=== PATIENT | male | born 1965 | race Caucasian/White ===

== ENCOUNTER 2018-06-02 09:25 | Inpatient (IN) | payer BC ==
[2018-06-02] MEDS ORDERED: Sodium Chloride 0.9% 10 ML Syringe FLUSH PRN (09:33)
[2018-06-02] MEDS ORDERED: fentaNYL 100 MCG/2 ML SDV IVPUSH ONE (09:33)
[2018-06-02] MEDS ORDERED: Iopamidol 612 MG/ML 100 ML Bottle IVPUSH ONE (09:49)
[2018-06-02 10:46] LABS: CHLORIDE,CL 100 mEq/L (98-106); SODIUM,NA 137 mEq/L (136-145)
--- NOTE | 2018-06-02 12:02 | EDM.PDOC ---
ED HPI GENERAL MEDICAL PROBLEM - General Chief Complaint: General Stated Complaint: fall Time Seen by Provider: 06/02/18 09:35 Source of Information: Reports: Patient, EMS History Limitations: Reports: No Limitations - History of Present Illness INITIAL COMMENTS - FREE TEXT/NARRATIVE: Patient presents to ER per [facility] with complaints of right rib pain. Was working on a 3 step ladder and it started to "chong" and he fell landing on the metal step. States he did bend the step. Was able to work 4 hours after the event occurred and when he went home for the night, laid down on his couch and has been unable to get up since that time. He complains of severe pain with movement but no real pain when at rest. He denies any shortness of breath, just pain with deep breaths. Has been voiding in "a peanut butter jar" and friends have been getting him water to drink. He denies back pain, pelvic pain or leg pain. Did not hit his head or lose consciousness with the fall. No neck pain today. PMH of Hypertension, Hyperlipidemia. 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, NSAIDS Right Lumbar Pain Score (Numeric/FACES): 8 - Related Data Allergies Allergy/AdvReac Type Severity Reaction Status Date / Time No Known Allergies Allergy Verified 06/02/18 09:44 Home Meds: Home Meds Aspirin 325 mg PO DAILY 10/31/15 [History] Calcium Carbonate [Calcium] 500 mg PO DAILY 10/31/15 [History] Cholecalciferol (Vitamin D3) [Vitamin D] 2,000 unit PO DAILY 10/31/15 [History] Hydrochlorothiazide 12.5 mg PO DAILY 10/31/15 [History] Multivitamin [Daily Multiple Vitamin] 1 tab PO DAILY 10/31/15 [History] Niacin 500 mg PO DAILY 10/31/15 [History] Valsartan 300 mg PO DAILY 10/31/15 [History] Vitamin B Complex [B Complex] 1 tab PO DAILY 10/31/15 [History] Zinc 50 mg PO DAILY 10/31/15 [History] amLODIPine Besylate [Amlodipine Besylate] 10 mg PO DAILY 10/31/15 [History] Cranberry 500 mg PO DAILY 06/02/18 [History] Rosuvastatin Calcium 40 mg PO DAILY 06/02/18 [History] Past Medical History Cardiovascular History: Reports: High Cholesterol, Hypertension Respiratory History: Reports: Sleep Apnea Musculoskeletal History: Reports: Back Pain, Chronic Endocrine/Metabolic History: Reports: Other (See Below) Other Endocrine/Metabolic History: PRE-DIABETIC - Past Surgical History GI Surgical History: Reports: Hernia, Abdominal Male Surgical History: Reports: Lithotripsy (ES[facility]) Musculoskeletal Surgical History: Reports: Other (See Below) Other Musculoskeletal Surgeries/Procedures:: BACK SURGERY Social & Family History - Family History Family Medical History: Noncontributory - Tobacco Use Smoking Status *Q: Never Smoker - Recreational Drug Use Recreational Drug Use: No ED ROS GENERAL - Review of Systems Review Of Systems: See Below Constitutional: Reports: Weakness. Denies: Fever, Chills, Malaise, Decreased Appetite HEENT: Denies: Ear Pain, Sinus Problem, Throat Pain, Vertigo Respiratory: Reports: Pleuritic Chest Pain. Denies: Shortness of Breath, Cough Cardiovascular: Denies: Chest Pain, Edema, Lightheadedness Endocrine: Denies: Fatigue GI/Abdominal: Denies: Abdominal Pain, Nausea, Vomiting : Reports: No Symptoms Musculoskeletal: Reports: Other (right chest wall pain) Neurological: Reports: No Symptoms Psychiatric: Reports: No Symptoms ED EXAM, GENERAL - Physical Exam Exam: See Below Exam Limited By: No Limitations General Appearance: Alert, WD/WN, Moderate Distress Ears: Normal External Exam, Normal TMs Nose: Normal Inspection, Normal Mucosa, No Blood Throat/Mouth: Normal Inspection, Normal Oropharynx Head: Normocephalic Neck: Normal Inspection, Supple, Non-Tender Respiratory/Chest: Lungs Clear, Other (right chest and axilla tender with palpation) Cardiovascular: Regular Rate, Rhythm GI/Abdominal: Normal Bowel Sounds, Soft, Non-Tender Extremities: Normal Inspection, Normal Range of Motion, Normal Capillary Refill Neurological: Alert, Oriented Skin Exam: Warm, Dry Course - Vital Signs Last Recorded V/S: Last Vital Signs Temp 97.8 F 06/02/18 09:33 Pulse 72 06/02/18 09:33 Resp 20 06/02/18 09:33 BP 137/87 06/02/18 09:33 Pulse Ox 97 06/02/18 09:33 - Orders/Labs/Meds Orders: Active Orders 24 hr Category Date Time Status Chest w Cont [CT] Stat Exams 06/02/18 09:48 Taken Sodium Chloride 0.9% [Saline Flush] Med 06/02/18 09:33 Active 10 ml FLUSH ASDIRECTED PRN Saline Lock Insert [OM.PC] Routine Oth 06/02/18 09:33 Ordered Medication Orders Sodium Chloride (Saline Flush) 10 ml FLUSH ASDIRECTED PRN PRN Reason: Keep Vein Open Labs: Laboratory Tests 06/02/18 06/02/18 06/02/18 Range/Units 09:17 09:34 09:34 WBC 9.2 (5.0-10.0) 10^3/uL RBC 5.48 (4.50-6.00) 10^6/uL Hgb 17.0 (14.0-18.0) g/dL Hct 50.0 (40.0-54.0) % MCV 91.2 (82.0-94.0) fL MCH 31.0 (27.0-32.0) pg MCHC 34.0 (33.0-38.0) g/dL RDW Coeff of Ronak 13.4 (11.0-15.0) % Plt Count 202 (150-400) 10^3/uL Neut % (Auto) 67.2 (35-85) % Lymph % (Auto) 22.9 (10-55) % Brown % (Auto) 8.2 (0-16) % Eos % (Auto) 1.4 (0-5) % Baso % (Auto) 0.3 (0-3) % Neut # (Auto) 6.19 (1.80-7.00) 10^3/uL Lymph # (Auto) 2.11 (1.00-4.80) 10^3/uL Brown # (Auto) 0.76 (0.00-0.80) 10^3/uL Eos # (Auto) 0.13 (0.00-0.45) 10^3/uL Baso # (Auto) 0.03 10^3/uL Sodium 137 (136-145) mEq/L Potassium 4.1 (3.5-5.0) mEq/L Chloride 100 (98-106) mEq/L Carbon Dioxide 29 (21-32) mmol/L BUN 15 (7-18) mg/dL Creatinine 1.2 (0.7-1.3) mg/dL Est Cr Clr Drug Dosing 68.08 mL/min Estimated GFR (MDRD) > 60 (>=60) mL/min Glucose 105 H (75-99) mg/dL Calcium 10.9 H (8.4-10.1) mg/dL Total Bilirubin 0.9 (0.0-1.0) mg/dL AST 31 (15-37) U/L ALT 46 (12-78) U/L Alkaline Phosphatase 82 (46-116) U/L Creatine Kinase 234 H (35-232) U/L C-Reactive Protein 1.5 H (0.2-0.8) mg/dL Total Protein 8.1 (6.4-8.2) g/dL Albumin 3.8 (3.4-5.0) g/dL Urine Color Yellow (YELLOW) Urine Appearance Clear (CLEAR) Urine pH 6.5 (4.5-8.0) Ur Specific Anderson 1.020 (1.003-1.020) Urine Protein Negative (NEGATIVE) mg/dL Urine Glucose (UA) Negative (NEGATIVE) mg/dL Urine Ketones 15 H (NEGATIVE) mg/dL Urine Occult Blood Negative (NEGATIVE) Urine Nitrite Negative (NEGATIVE) Urine Bilirubin Negative (NEGATIVE) Urine Urobilinogen 0.2 (0.2-1.0) EU/dL Ur Leukocyte Esterase Negative (NEGATIVE) Urine RBC Not seen (0-5) /HPF Urine WBC Not seen (0-5) /HPF Calcium Oxalate Crystal Few H (NOT SEEN) /HPF Amorphous Sediment Moderate H (NOT SEEN) /HPF Urine Mucus Moderate H (NOT SEEN) /HPF Meds: Medications Generic Name Dose Route Start Last Admin Trade Name Freq PRN Reason Stop Dose Admin Sodium Chloride 10 ml 06/02/18 09:33 Saline Flush FLUSH ASDIRECTED PRN Keep Vein Open Discontinued Medications Generic Name Dose Route Start Last Admin Trade Name Freq PRN Reason Stop Dose Admin Fentanyl 50 mcg 06/02/18 09:33 06/02/18 09:40 Sublimaze IVPUSH 06/02/18 09:34 50 mcg ONETIME ONE Administration Iopamidol 100 ml 06/02/18 09:49 Isovue-300 (61%) IVPUSH 06/02/18 09:50 ONETIME ONE - Re-Assessments/Exams Free Text/Narrative Re-Assessment/Exam: 06/02/18 12:06 CT scan of the chest was done. Does have rib fractures of 7, 8 and 9. Fractures 8-9 are displaced. Mild pleural effusion. No pneumothorax or blood noted. Labs essentially negative. 1150 Patient advised of findings of CT. Discussed home with pain medications versus admission with physical therapy and pain control. Has not been mobile at all for the last 2 days due to pain so patient agrees with plan for inpatient stay. Departure - Departure Time of Disposition: 12:09 Disposition: Admitted As Inpatient 64 Condition: Fair Clinical Impression: Multiple rib fractures - Discharge Information *PRESCRIPTION DRUG MONITORING PROGRAM REVIEWED*: No *COPY OF PRESCRIPTION DRUG MONITORING REPORT IN PATIENT LEONARD: No Referrals: PCP,Unknown [Primary Care Provider] - - Problem List & Annotations (1) Multiple rib fractures SNOMED Code(s): 8774454 Code(s): S22.49XA - MULTIPLE FRACTURES OF RIBS, UNSP SIDE, INIT FOR CLOS FX Status: Acute Priority: High Current Visit: Yes Qualifiers: Encounter type: initial encounter Laterality: right - Problem List Review Problem List Initiated/Reviewed/Updated: Yes - My Orders Last 24 Hours: My Active Orders 06/02/18 09:33 Sodium Chloride 0.9% [Saline Flush] 10 ml FLUSH ASDIRECTED PRN Saline Lock Insert [OM.PC] Routine 06/02/18 09:48 Chest w Cont [CT] Stat - Assessment/Plan Admission H&P: Please use this note as an admission H&P Last 24 Hours: My Active Orders 06/02/18 09:33 Sodium Chloride 0.9% [Saline Flush] 10 ml FLUSH ASDIRECTED PRN Saline Lock Insert [OM.PC] Routine 06/02/18 09:48 Chest w Cont [CT] Stat Assessment:: Mulitiple Right Rib Fractures Plan: Patient admitted inpatient for multiple rib fractures for pain control and physical therapy for ambulation.
[2018-06-02] MEDS ORDERED: Acetaminophen 325 MG Tab PO PRN (12:27)
[2018-06-02] MEDS ORDERED: fentaNYL 100 MCG/2 ML SDV IVPUSH PRN (12:27)
[2018-06-02] MEDS ORDERED: Ondansetron 4 MG Tab.DIS PO PRN (12:27)
[2018-06-02] MEDS: Enoxaparin 40 MG/0.4 ML Syringe SUBCUT SCH (12:49)
[2018-06-02] MEDS: fentaNYL 100 MCG/2 ML SDV IVPUSH SCH (19:45)
[2018-06-02] MEDS: Docusate Sodium 100 MG Cap PO SCH (19:49)
[2018-06-02] MEDS: Acetaminophen/oxyCODONE 325-5 MG Tab PO PRN (23:52)
[2018-06-03] MEDS: Aspirin 325 MG Tab PO SCH (07:53)
[2018-06-03] MEDS: amLODIPine 10 MG Tab PO SCH (07:53)
[2018-06-03] MEDS: Hydrochlorothiazide 12.5 MG Cap PO SCH (07:53)
[2018-06-03] MEDS: Docusate Sodium 100 MG Cap PO SCH ×2 (07:53→20:06)
[2018-06-03] MEDS: Multivitamin Tab PO SCH (07:54)
[2018-06-03] MEDS: Calcium Carbonate 500 MG Tab.Chew PO SCH (07:54)
[2018-06-03] MEDS: Vitamin B Complex Cap PO SCH (07:55)
[2018-06-03] MEDS: Cholecalciferol (Vitamin D3) 1,000 Unit Tab PO SCH (07:55)
[2018-06-03] MEDS: Zinc Sulfate 220 MG Cap PO SCH (07:55)
[2018-06-03] MEDS: Simvastatin 40 MG Tab PO SCH (07:55)
[2018-06-03] MEDS: fentaNYL 100 MCG/2 ML SDV IVPUSH SCH ×2 (07:56→20:06)
[2018-06-03] MEDS ORDERED: Non-Formulary Medication 1 Each (Cranberry [Cranberry] 500 MG) PO SCH (08:00)
[2018-06-03] MEDS ORDERED: NIACIN 500 MG PO SCH (08:00)
[2018-06-03] MEDS ORDERED: VALSARTAN 300 MG PO SCH (08:00)
[2018-06-03] MEDS: Cyclobenzaprine 10 MG Tab PO SCH ×3 (08:19→20:06)
[2018-06-03] MEDS: Meloxicam 7.5 MG Tab PO SCH (08:19)
[2018-06-03] MEDS: Enoxaparin 40 MG/0.4 ML Syringe SUBCUT SCH (11:29)
--- NOTE | 2018-06-03 13:13 | PCM.PN ---
- General Info Date of Service: 06/03/18 Admission Dx/Problem (Free Text): Right Rib Fractures of 7, 8 and 9 Functional Status: Reports: Pain Controlled, Tolerating Diet. Denies: Ambulating - Review of Systems General: Reports: Malaise. Denies: Fever, Weakness, Fatigue HEENT: Reports: No Symptoms Pulmonary: Reports: Pleuritic Chest Pain. Denies: Shortness of Breath, Cough Cardiovascular: Denies: Chest Pain, Edema, Lightheadedness Gastrointestinal: Denies: Abdominal Pain, Nausea, Vomiting Genitourinary: Reports: No Symptoms Musculoskeletal: Reports: Other (right rib pain) Skin: Reports: No Symptoms Neurological: Reports: No Symptoms - Patient Data Vitals - Most Recent: Last Vital Signs Temp 99.2 F 06/03/18 11:54 Pulse 81 06/03/18 11:54 Resp 20 06/03/18 11:54 BP 127/82 06/03/18 11:54 Pulse Ox 95 06/03/18 11:54 Weight - Most Recent: 335 lb 3.2 oz Lab Results Last 24 Hours: Laboratory Results - last 24 hr 06/02/18 Range/Units 20:26 POC Glucose 118 H (75-105) mg/dl Med Orders - Current: Current Medications Acetaminophen (Tylenol) 650 mg PO Q4H PRN PRN Reason: Pain (Mild 1-3)/fever Amlodipine Besylate (Norvasc) 10 mg PO DAILY [facility] Last Admin: 06/03/18 07:53 Dose: 10 mg Aspirin (Aspirin) 325 mg PO DAILY [facility] Last Admin: 06/03/18 07:53 Dose: 325 mg Calcium Carbonate/Glycine (Tums) 500 mg PO DAILY [facility] Last Admin: 06/03/18 07:54 Dose: 500 mg Cholecalciferol (Vitamin D3) 2,000 units PO DAILY [facility] Last Admin: 06/03/18 07:55 Dose: 2,000 units Cyclobenzaprine HCl (Flexeril) 10 mg PO TID [facility] Last Admin: 06/03/18 08:19 Dose: 10 mg Docusate Sodium (Colace) 100 mg PO BID [facility] Last Admin: 06/03/18 07:53 Dose: 100 mg Enoxaparin Sodium (Lovenox) 40 mg SUBCUT Q24H [facility] Last Admin: 06/03/18 11:29 Dose: 40 mg Fentanyl (Sublimaze) 50 mcg IVPUSH BID [facility] Last Admin: 06/03/18 07:56 Dose: 50 mcg Fentanyl (Sublimaze) 25 mcg IVPUSH Q6H PRN PRN Reason: Pain Last Admin: 06/02/18 17:00 Dose: 25 mcg Hydrochlorothiazide (Hydrochlorothiazide) 12.5 mg PO DAILY [facility] Last Admin: 06/03/18 07:53 Dose: 12.5 mg Meloxicam (Mobic) 15 mg PO DAILY [facility] Last Admin: 06/03/18 08:19 Dose: 15 mg Multivitamins/Minerals/Vitamin C (Tab-A-Bushra) 1 tab PO DAILY [facility] Last Admin: 06/03/18 07:54 Dose: 1 tab Valsartan 300 Mg (Own Med) 300 mg PO DAILY [facility] Ondansetron HCl (Zofran Odt) 4 mg PO Q4H PRN PRN Reason: nausea, able to take PO Oxycodone/Acetaminophen (Percocet 325-5 Mg) 2 tab PO Q6H PRN PRN Reason: Pain (moderate 4-6) Last Admin: 06/02/18 23:52 Dose: 2 tab Simvastatin (Zocor) 80 mg PO DAILY [facility] Last Admin: 06/03/18 07:55 Dose: 80 mg Sodium Chloride (Saline Flush) 10 ml FLUSH ASDIRECTED PRN PRN Reason: Keep Vein Open Vitamin B Complex (Vitamin B Complex) 1 each PO DAILY [facility] Last Admin: 06/03/18 07:55 Dose: 1 each Zinc Sulfate (Zincate) 220 mg PO DAILY [facility] Last Admin: 06/03/18 07:55 Dose: 220 mg Discontinued Medications Fentanyl (Sublimaze) 50 mcg IVPUSH ONETIME ONE Stop: 06/02/18 09:34 Last Admin: 06/02/18 09:40 Dose: 50 mcg Iopamidol (Isovue-300 (61%)) 100 ml IVPUSH ONETIME ONE Stop: 06/02/18 09:50 Last Admin: 06/02/18 19:08 Dose: Not Given Non-Formulary Medication (Cranberry [Cranberry]) 500 mg PO DAILY [facility] Non-Formulary Medication (Niacin [Niacin]) 500 mg PO DAILY [facility] - Exam General: Alert, Oriented HEENT: Mucous Membr. Moist/Singer Neck: Supple Lungs: Clear to Auscultation, Normal Respiratory Effort, Other Cardiovascular: Regular Rate, Regular Rhythm GI/Abdominal Exam: Normal Bowel Sounds, Soft, Non-Tender Extremities: Normal Inspection, Other (tender to right axilla) Skin: Warm, Dry Neurological: No New Focal Deficit - Problem List & Annotations (1) Multiple rib fractures SNOMED Code(s): 2873834 Code(s): S22.49XA - MULTIPLE FRACTURES OF RIBS, UNSP SIDE, INIT FOR CLOS FX Status: Acute Priority: High Current Visit: Yes Qualifiers: Encounter type: initial encounter Laterality: right - Problem List Review Problem List Initiated/Reviewed/Updated: Yes - My Orders Last 24 Hours: My Active Orders 06/02/18 12:15 Resuscitation Status Routine 06/02/18 12:27 Patient Status [ADT] Routine Oxygen Therapy [RC] .PRN Up With Assistance [RC] .PRN Vital Signs [RC] 0000,0400,0800,1200,1600,2000 PT Evaluation and Treatment [CONS] Routine Acetaminophen [Tylenol] 650 mg PO Q4H PRN Acetaminophen/oxyCODONE [Percocet 325-5 MG] 2 tab PO Q6H PRN Ondansetron [Zofran ODT] 4 mg PO Q4H PRN fentaNYL [Sublimaze] 25 mcg IVPUSH Q6H PRN 06/02/18 19:39 Incentive Spirometry [RT Incentive Spirometry] [RC] 0900,1300,1600,2000 06/02/18 20:00 fentaNYL [Sublimaze] 50 mcg IVPUSH BID 06/03/18 08:00 Aspirin 325 mg PO DAILY Calcium Carbonate [Tums] 500 mg PO DAILY Cholecalciferol (Vitamin D3) [Vitamin D3] 2,000 units PO DAILY Cyclobenzaprine [Flexeril] 10 mg PO TID Meloxicam [Mobic] 15 mg PO DAILY Multivitamins [Tab-A-Bushra] 1 tab PO DAILY Simvastatin [Zocor] 80 mg PO DAILY Valsartan [Valsartan] 300 mg PO DAILY Vitamin B Complex 1 each PO DAILY Zinc Sulfate [Zincate] 220 mg PO DAILY amLODIPine [Norvasc] 10 mg PO DAILY hydroCHLOROthiazide 12.5 mg PO DAILY - Assessment Assessment:: Patient is still having ongoing pain with any movement but does admit it is better with the pain medications. Has been resistant with getting out of bed or toileting. Is using the incentive spirometer when encouraged by nursing. Denies shortness of breath. Is getting scheduled Fentanyl and taking Percocet for break through pain. Continue pain meds and physical therapy. Encouraged to be up and mobile as much as possible to prevent any further concerns, ie. pneumonia, atelectasis, etc. Continue IS.
[2018-06-03] MEDS: IRBESARTAN 300 MG PO SCH (16:57)
[2018-06-03] MEDS: Acetaminophen/oxyCODONE 325-5 MG Tab PO PRN (23:56)
[2018-06-04] MEDS: fentaNYL 100 MCG/2 ML SDV IVPUSH SCH ×2 (08:34→19:29)
[2018-06-04] MEDS: Vitamin B Complex Cap PO SCH (08:35)
[2018-06-04] MEDS: Calcium Carbonate 500 MG Tab.Chew PO SCH (08:35)
[2018-06-04] MEDS: Simvastatin 40 MG Tab PO SCH (08:36)
[2018-06-04] MEDS: Meloxicam 7.5 MG Tab PO SCH (08:36)
[2018-06-04] MEDS: Zinc Sulfate 220 MG Cap PO SCH (08:36)
[2018-06-04] MEDS: amLODIPine 10 MG Tab PO SCH (08:36)
[2018-06-04] MEDS: Multivitamin Tab PO SCH (08:36)
[2018-06-04] MEDS: Cyclobenzaprine 10 MG Tab PO SCH ×3 (08:38→19:28)
[2018-06-04] MEDS: Cholecalciferol (Vitamin D3) 1,000 Unit Tab PO SCH (08:39)
[2018-06-04] MEDS: Docusate Sodium 100 MG Cap PO SCH ×2 (08:39→19:28)
[2018-06-04] MEDS: Aspirin 325 MG Tab PO SCH (08:39)
[2018-06-04] MEDS: Hydrochlorothiazide 12.5 MG Cap PO SCH (08:39)
[2018-06-04] MEDS: IRBESARTAN 300 MG PO SCH (08:40)
[2018-06-04] MEDS: Enoxaparin 40 MG/0.4 ML Syringe SUBCUT SCH (11:42)
--- NOTE | 2018-06-04 13:56 | PCM.PN ---
- General Info Date of Service: 06/04/18 Functional Status: Reports: Other (pain partially controlled) - Review of Systems General: Reports: No Symptoms Cardiovascular: Denies: Chest Pain Gastrointestinal: Denies: Abdominal Pain, Diarrhea, Nausea, Vomiting Genitourinary: Denies: Dysuria Musculoskeletal: Reports: Other (RIGHT back pain s/p fx of ribs 7, 8, 9. no other MSK complaints) Neurological: Reports: No Symptoms - Patient Data Vitals - Most Recent: Last Vital Signs Temp 37.0 C 06/04/18 12:00 Pulse 79 06/04/18 12:00 Resp 16 06/04/18 12:00 BP 154/85 H 06/04/18 12:00 Pulse Ox 96 06/04/18 12:00 Weight - Most Recent: 152.044 kg Med Orders - Current: Current Medications Acetaminophen (Tylenol) 650 mg PO Q4H PRN PRN Reason: Pain (Mild 1-3)/fever Amlodipine Besylate (Norvasc) 10 mg PO DAILY [facility] Last Admin: 06/04/18 08:36 Dose: 10 mg Aspirin (Aspirin) 325 mg PO DAILY [facility] Last Admin: 06/04/18 08:39 Dose: 325 mg Calcium Carbonate/Glycine (Tums) 500 mg PO DAILY [facility] Last Admin: 06/04/18 08:35 Dose: 500 mg Cholecalciferol (Vitamin D3) 2,000 units PO DAILY [facility] Last Admin: 06/04/18 08:39 Dose: 2,000 units Cyclobenzaprine HCl (Flexeril) 10 mg PO TID [facility] Last Admin: 06/04/18 13:51 Dose: 10 mg Docusate Sodium (Colace) 100 mg PO BID [facility] Last Admin: 06/04/18 08:39 Dose: 100 mg Enoxaparin Sodium (Lovenox) 40 mg SUBCUT Q24H [facility] Last Admin: 06/04/18 11:42 Dose: 40 mg Fentanyl (Sublimaze) 50 mcg IVPUSH BID [facility] Last Admin: 06/04/18 08:34 Dose: 50 mcg Fentanyl (Sublimaze) 25 mcg IVPUSH Q6H PRN PRN Reason: Pain Last Admin: 06/02/18 17:00 Dose: 25 mcg Hydrochlorothiazide (Hydrochlorothiazide) 12.5 mg PO DAILY [facility] Last Admin: 10/06/18 08:39 Dose: 12.5 mg Meloxicam (Mobic) 15 mg PO DAILY [facility] Last Admin: 06/04/18 08:36 Dose: 15 mg Multivitamins/Minerals/Vitamin C (Tab-A-Bushra) 1 tab PO DAILY [facility] Last Admin: 06/04/18 08:36 Dose: 1 tab Irbesartan 300 Mg (Tabs Own Med) 0 each PO DAILY [facility] Last Admin: 06/04/18 08:40 Dose: 1 each Ondansetron HCl (Zofran Odt) 4 mg PO Q4H PRN PRN Reason: nausea, able to take PO Oxycodone/Acetaminophen (Percocet 325-5 Mg) 2 tab PO Q6H PRN PRN Reason: Pain (moderate 4-6) Last Admin: 06/03/18 23:56 Dose: 2 tab Simvastatin (Zocor) 80 mg PO DAILY [facility] Last Admin: 06/04/18 08:36 Dose: 80 mg Sodium Chloride (Saline Flush) 10 ml FLUSH ASDIRECTED PRN PRN Reason: Keep Vein Open Vitamin B Complex (Vitamin B Complex) 1 each PO DAILY [facility] Last Admin: 06/04/18 08:35 Dose: 1 each Zinc Sulfate (Zincate) 220 mg PO DAILY [facility] Last Admin: 06/04/18 08:36 Dose: 220 mg Discontinued Medications Fentanyl (Sublimaze) 50 mcg IVPUSH ONETIME ONE Stop: 06/02/18 09:34 Last Admin: 06/02/18 09:40 Dose: 50 mcg Iopamidol (Isovue-300 (61%)) 100 ml IVPUSH ONETIME ONE Stop: 06/02/18 09:50 Last Admin: 06/02/18 19:08 Dose: Not Given Non-Formulary Medication (Cranberry [Cranberry]) 500 mg PO DAILY [facility] Non-Formulary Medication (Niacin [Niacin]) 500 mg PO DAILY [facility] - Exam General: Alert, Oriented Lungs: Clear to Auscultation, Normal Respiratory Effort Cardiovascular: Regular Rate, Regular Rhythm GI/Abdominal Exam: Soft Back Exam: Other (TTP RIGHT upper and lateral back / chest wall. no crepitus or deformity. back exam otherwise without acute findings.) Peripheral Pulses: 2+: Radial (L), Radial (R) Skin: Warm, Dry, Intact Neurological: No New Focal Deficit Psy/Mental Status: Alert, Normal Affect, Normal Mood - Problem List Review Problem List Initiated/Reviewed/Updated: Yes - Assessment Assessment:: Patient is still having ongoing pain with any movement but does admit it is better with the pain medications. Has been resistant with getting out of bed or toileting. Is using the incentive spirometer when encouraged by nursing. Denies shortness of breath. Is getting scheduled Fentanyl and taking Percocet for break through pain. Continue pain meds and physical therapy. Encouraged to be up and mobile as much as possible to prevent any further concerns, ie. pneumonia, atelectasis, etc. Continue IS. 06/04/18 Reports continued pain but improved from yesterday. Using IS. Encourage ambulation. Plan is for DC home tomorrow. Repeat exam in AM.
[2018-06-04] MEDS: Acetaminophen/oxyCODONE 325-5 MG Tab PO PRN (23:44)
[2018-06-05] MEDS: Hydrochlorothiazide 12.5 MG Cap PO SCH (07:40)
[2018-06-05] MEDS: Cholecalciferol (Vitamin D3) 1,000 Unit Tab PO SCH (07:41)
[2018-06-05] MEDS: Simvastatin 40 MG Tab PO SCH (07:41)
[2018-06-05] MEDS: Docusate Sodium 100 MG Cap PO SCH (07:41)
[2018-06-05] MEDS: Meloxicam 7.5 MG Tab PO SCH (07:41)
[2018-06-05] MEDS: Aspirin 325 MG Tab PO SCH (07:41)
[2018-06-05] MEDS: Zinc Sulfate 220 MG Cap PO SCH (07:41)
[2018-06-05] MEDS: Vitamin B Complex Cap PO SCH (07:41)
[2018-06-05] MEDS: Calcium Carbonate 500 MG Tab.Chew PO SCH (07:41)
[2018-06-05] MEDS: Multivitamin Tab PO SCH (07:42)
[2018-06-05] MEDS: fentaNYL 100 MCG/2 ML SDV IVPUSH SCH (07:42)
[2018-06-05] MEDS: Cyclobenzaprine 10 MG Tab PO SCH (07:42)
[2018-06-05] MEDS: amLODIPine 10 MG Tab PO SCH (07:42)
[2018-06-05] MEDS: IRBESARTAN 300 MG PO SCH (07:52)
[2018-06-05 08:12] VITALS: BP 144/91
--- NOTE | 2018-06-05 08:53 | PCM.PN ---
- General Info Date of Service: 06/05/18 Functional Status: Reports: Pain Controlled - Review of Systems General: Reports: No Symptoms HEENT: Reports: No Symptoms Pulmonary: Reports: No Symptoms Cardiovascular: Reports: Other (chest wall pain) Gastrointestinal: Reports: No Symptoms Musculoskeletal: Reports: Other (RIGHT chest wall rib pain. denies other MSK concerns.) Skin: Reports: No Symptoms Neurological: Reports: No Symptoms - Patient Data Vitals - Most Recent: Last Vital Signs Temp 36.8 C 06/05/18 08:00 Pulse 75 06/05/18 08:00 Resp 16 06/05/18 08:00 BP 144/91 H 06/05/18 08:00 Pulse Ox 94 L 06/05/18 08:00 Weight - Most Recent: 152.044 kg Med Orders - Current: Current Medications Acetaminophen (Tylenol) 650 mg PO Q4H PRN PRN Reason: Pain (Mild 1-3)/fever Amlodipine Besylate (Norvasc) 10 mg PO DAILY [facility] Last Admin: 06/05/18 07:42 Dose: 10 mg Aspirin (Aspirin) 325 mg PO DAILY [facility] Last Admin: 06/05/18 07:41 Dose: 325 mg Calcium Carbonate/Glycine (Tums) 500 mg PO DAILY [facility] Last Admin: 06/05/18 07:41 Dose: 500 mg Cholecalciferol (Vitamin D3) 2,000 units PO DAILY [facility] Last Admin: 06/05/18 07:41 Dose: 2,000 units Cyclobenzaprine HCl (Flexeril) 10 mg PO TID [facility] Last Admin: 06/05/18 07:42 Dose: 10 mg Docusate Sodium (Colace) 100 mg PO BID [facility] Last Admin: 06/05/18 07:41 Dose: 100 mg Enoxaparin Sodium (Lovenox) 40 mg SUBCUT Q24H [facility] Last Admin: 06/04/18 11:42 Dose: 40 mg Fentanyl (Sublimaze) 50 mcg IVPUSH BID [facility] Last Admin: 06/05/18 07:42 Dose: 50 mcg Fentanyl (Sublimaze) 25 mcg IVPUSH Q6H PRN PRN Reason: Pain Last Admin: 06/02/18 17:00 Dose: 25 mcg Hydrochlorothiazide (Hydrochlorothiazide) 12.5 mg PO DAILY [facility] Last Admin: 06/05/18 07:40 Dose: 12.5 mg Meloxicam (Mobic) 15 mg PO DAILY [facility] Last Admin: 06/05/18 07:41 Dose: 15 mg Multivitamins/Minerals/Vitamin C (Tab-A-Bushra) 1 tab PO DAILY [facility] Last Admin: 06/05/18 07:42 Dose: 1 tab Irbesartan 300 Mg (Tabs Own Med) 0 each PO DAILY [facility] Last Admin: 06/05/18 07:52 Dose: 1 each Ondansetron HCl (Zofran Odt) 4 mg PO Q4H PRN PRN Reason: nausea, able to take PO Oxycodone/Acetaminophen (Percocet 325-5 Mg) 2 tab PO Q6H PRN PRN Reason: Pain (moderate 4-6) Last Admin: 06/04/18 23:44 Dose: 2 tab Simvastatin (Zocor) 80 mg PO DAILY [facility] Last Admin: 06/05/18 07:41 Dose: 80 mg Sodium Chloride (Saline Flush) 10 ml FLUSH ASDIRECTED PRN PRN Reason: Keep Vein Open Vitamin B Complex (Vitamin B Complex) 1 each PO DAILY [facility] Last Admin: 06/05/18 07:41 Dose: 1 each Zinc Sulfate (Zincate) 220 mg PO DAILY [facility] Last Admin: 06/05/18 07:41 Dose: 220 mg Discontinued Medications Fentanyl (Sublimaze) 50 mcg IVPUSH ONETIME ONE Stop: 06/02/18 09:34 Last Admin: 06/02/18 09:40 Dose: 50 mcg Iopamidol (Isovue-300 (61%)) 100 ml IVPUSH ONETIME ONE Stop: 06/02/18 09:50 Last Admin: 06/02/18 19:08 Dose: Not Given Non-Formulary Medication (Cranberry [Cranberry]) 500 mg PO DAILY [facility] Non-Formulary Medication (Niacin [Niacin]) 500 mg PO DAILY [facility] - Exam General: Alert, Oriented Lungs: Normal Respiratory Effort Cardiovascular: Regular Rate, Regular Rhythm Back Exam: Normal Inspection, Other (TTP RIGHT upper back. ) Extremities: Normal Inspection, Normal Range of Motion, Normal Capillary Refill Peripheral Pulses: 2+: Radial (L), Radial (R) Skin: Warm, Dry, Intact Neurological: No New Focal Deficit Psy/Mental Status: Alert, Normal Affect, Normal Mood - Problem List Review Problem List Initiated/Reviewed/Updated: Yes - My Orders Last 24 Hours: My Active Orders 06/05/18 08:24 Ready for Discharge [RC] PER UNIT ROUTINE - Assessment Assessment:: Patient is still having ongoing pain with any movement but does admit it is better with the pain medications. Has been resistant with getting out of bed or toileting. Is using the incentive spirometer when encouraged by nursing. Denies shortness of breath. Is getting scheduled Fentanyl and taking Percocet for break through pain. Continue pain meds and physical therapy. Encouraged to be up and mobile as much as possible to prevent any further concerns, ie. pneumonia, atelectasis, etc. Continue IS. 06/04/18 Reports continued pain but improved from yesterday. Using IS. Encourage ambulation. Plan is for DC home tomorrow. Repeat exam in AM. 06/05/18 reports significant improvement in pain control. reports he is able to go home today. Rx for PO norco and PO metaxalone. advised patient to rest, hydrate, take all Rx as directed, avoid heavy manual labor, fu with pcp in 3-5 days, go to ER if change or worse. patient reports understanding and agreement with plan. dc home stable.
[2018-06-05] MEDS ORDERED: Take Home: Acetaminophen/HYDROcodone 325-5 MG, 2 Tab Pack PO ONE (09:13)
--- NOTE | 2018-06-06 08:06 | PCM.DCSUM1 ---
Discharge Summary - Hospital Course Free Text/Narrative:: Patient pain controlled. No new problems during stay. Rx for PO norco and metaxalone for outpatient pain control. Advised patient to rest, hydrated, take all Rx as directed, avoid heavy labor, fu with PCP in 3-5 days, go to ER if change or worse. Patient reports understanding and agreement. DC home stable. Diagnosis: Stroke: No - Discharge Data Discharge Date: 06/05/18 Discharge Disposition: Home, Self-Care 01 Condition: Fair - Patient Summary/Data Consults: Consultations 06/02/18 12:27 PT Evaluation and Treatment [CONS] Routine - Patient Instructions Diet: Usual Diet as Tolerated Activity: No Strenuous Activities, Rest and Relax Today Driving: May Drive Today Showering/Bathing: December Shower - Discharge Plan *PRESCRIPTION DRUG MONITORING PROGRAM REVIEWED*: No *COPY OF PRESCRIPTION DRUG MONITORING REPORT IN PATIENT LEONARD: No Home Medications: Home Meds Aspirin 325 mg PO DAILY 10/31/15 [History] Calcium Carbonate [Calcium] 500 mg PO DAILY 10/31/15 [History] Cholecalciferol (Vitamin D3) [Vitamin D] 2,000 unit PO DAILY 10/31/15 [History] Hydrochlorothiazide 12.5 mg PO DAILY 10/31/15 [History] Multivitamin [Daily Multiple Vitamin] 1 tab PO DAILY 10/31/15 [History] Niacin 500 mg PO DAILY 10/31/15 [History] Vitamin B Complex [B Complex] 1 tab PO DAILY 10/31/15 [History] Zinc 50 mg PO DAILY 10/31/15 [History] amLODIPine Besylate [Amlodipine Besylate] 10 mg PO DAILY 10/31/15 [History] Cranberry 500 mg PO DAILY 06/02/18 [History] Rosuvastatin Calcium 40 mg PO DAILY 06/02/18 [History] Irbesartan 300 mg PO DAILY 06/03/18 [History] Patient Handouts: Rib Fracture Forms: ED Department Discharge Referrals: PCP,Unknown [Primary Care Provider] - - Discharge Summary/Plan Comment DC Time >30 min.: No - General Info Date of Service: 06/05/18 Functional Status: Reports: Pain Controlled - Review of Systems General: Reports: No Symptoms Pulmonary: Reports: No Symptoms Cardiovascular: Reports: No Symptoms Musculoskeletal: Reports: Other (still with some pain to chest wall, improved from previous encounter) Neurological: Reports: No Symptoms - Patient Data Vitals - Most Recent: Last Vital Signs Temp 36.8 C 06/05/18 08:00 Pulse 75 06/05/18 08:00 Resp 16 06/05/18 08:00 BP 144/91 H 06/05/18 08:00 Pulse Ox 94 L 06/05/18 08:00 Weight - Most Recent: 152.044 kg Med Orders - Current: Current Medications Discontinued Medications Acetaminophen (Tylenol) 650 mg PO Q4H PRN PRN Reason: Pain (Mild 1-3)/fever Hydrocodone Bitart/Acetaminophen (Take Home: Acetaminophen/Hydrocod, 2 Tab Pack ) 3 packet PO ONETIME ONE Stop: 06/05/18 09:14 Last Admin: 06/05/18 10:00 Dose: 3 packet Amlodipine Besylate (Norvasc) 10 mg PO DAILY [facility] Last Admin: 06/05/18 07:42 Dose: 10 mg Aspirin (Aspirin) 325 mg PO DAILY [facility] Last Admin: 06/05/18 07:41 Dose: 325 mg Calcium Carbonate/Glycine (Tums) 500 mg PO DAILY [facility] Last Admin: 06/05/18 07:41 Dose: 500 mg Cholecalciferol (Vitamin D3) 2,000 units PO DAILY [facility] Last Admin: 06/05/18 07:41 Dose: 2,000 units Cyclobenzaprine HCl (Flexeril) 10 mg PO TID [facility] Last Admin: 06/05/18 07:42 Dose: 10 mg Docusate Sodium (Colace) 100 mg PO BID [facility] Last Admin: 06/05/18 07:41 Dose: 100 mg Enoxaparin Sodium (Lovenox) 40 mg SUBCUT Q24H [facility] Last Admin: 06/04/18 11:42 Dose: 40 mg Fentanyl (Sublimaze) 50 mcg IVPUSH ONETIME ONE Stop: 06/02/18 09:34 Last Admin: 06/02/18 09:40 Dose: 50 mcg Fentanyl (Sublimaze) 50 mcg IVPUSH BID [facility] Last Admin: 06/05/18 07:42 Dose: 50 mcg Fentanyl (Sublimaze) 25 mcg IVPUSH Q6H PRN PRN Reason: Pain Last Admin: 06/02/18 17:00 Dose: 25 mcg Hydrochlorothiazide (Hydrochlorothiazide) 12.5 mg PO DAILY [facility] Last Admin: 06/05/18 07:40 Dose: 12.5 mg Iopamidol (Isovue-300 (61%)) 100 ml IVPUSH ONETIME ONE Stop: 06/02/18 09:50 Last Admin: 06/02/18 19:08 Dose: Not Given Meloxicam (Mobic) 15 mg PO DAILY [facility] Last Admin: 06/05/18 07:41 Dose: 15 mg Multivitamins/Minerals/Vitamin C (Tab-A-Bushra) 1 tab PO DAILY [facility] Last Admin: 06/05/18 07:42 Dose: 1 tab Non-Formulary Medication (Cranberry [Cranberry]) 500 mg PO DAILY [facility] Non-Formulary Medication (Niacin [Niacin]) 500 mg PO DAILY [facility] Irbesartan 300 Mg (Tabs Own Med) 0 each PO DAILY [facility] Last Admin: 06/05/18 07:52 Dose: 1 each Ondansetron HCl (Zofran Odt) 4 mg PO Q4H PRN PRN Reason: nausea, able to take PO Oxycodone/Acetaminophen (Percocet 325-5 Mg) 2 tab PO Q6H PRN PRN Reason: Pain (moderate 4-6) Last Admin: 06/04/18 23:44 Dose: 2 tab Simvastatin (Zocor) 80 mg PO DAILY [facility] Last Admin: 06/05/18 07:41 Dose: 80 mg Sodium Chloride (Saline Flush) 10 ml FLUSH ASDIRECTED PRN PRN Reason: Keep Vein Open Vitamin B Complex (Vitamin B Complex) 1 each PO DAILY [facility] Last Admin: 06/05/18 07:41 Dose: 1 each Zinc Sulfate (Zincate) 220 mg PO DAILY [facility] Last Admin: 06/05/18 07:41 Dose: 220 mg - Exam General: Reports: Alert, Oriented Lungs: Reports: Normal Respiratory Effort Cardiovascular: Reports: Regular Rate, Regular Rhythm Back Exam: Reports: Other (RIGHT upper back TTP. Back exam otherwise without acute findings.)
== END 2018-06-05 10:17 | disposition home or self-care (01) | DRG 135 ==
LOC: CC.ED 09:25 → CC.MS 12:14
PROVIDERS: ADMIT Physician Assistant Medical; ATTEND Family Medicine
DX: S22.41XA Multiple fractures of ribs, right side, initial encounter for closed fracture (principal); W11.XXXA Fall on and from ladder, initial encounter; I10 Essential (primary) hypertension; E78.5 Hyperlipidemia, unspecified; E78.00 Pure hypercholesterolemia, unspecified; G47.30 Sleep apnea, unspecified; G89.29 Other chronic pain; M54.9 Dorsalgia, unspecified; R73.03 Prediabetes; Z79.82 Long term (current) use of aspirin; Z79.899 Other long term (current) drug therapy
CPT/HCPCS: 36415; 71260; 80053; 81001; 82550; 82962; 85025; 86140; 96374; 97116-GP; 97161-GP; 99284; A9270-GY; J1650; J3010; Q9967

== ENCOUNTER → 2022-08-28 | Day surgery (SDC) | payer BC ==
[~2022-08-28] MED LIST: Flumazenil 0.1 MG/ML 10 ML MDV ONE; Ketamine 200 MG/20 ML MDV ONE; Lactated Ringers 1,000 ML IV SCH; Midazolam 1 MG/ML 2 ML SDV ONE; Propofol 200 MG/20 ML SDV ONE; fentaNYL 50 MCG/ML SDV ONE
[2022-08-28 12:31] VITALS: BP 119/82; PULSE 89
== END ==
LOC: CC.SDS 10:56
PROVIDERS: ATTEND Family Medicine
DX: Z12.11 Encounter for screening for malignant neoplasm of colon (principal); K57.30 Diverticulosis of large intestine without perforation or abscess without bleeding; D12.3 Benign neoplasm of transverse colon; M19.90 Unspecified osteoarthritis, unspecified site; I10 Essential (primary) hypertension; E78.00 Pure hypercholesterolemia, unspecified; E66.01 Morbid (severe) obesity due to excess calories; G47.33 Obstructive sleep apnea (adult) (pediatric); E21.3 Hyperparathyroidism, unspecified; Z86.010 Personal history of colon polyps; Z79.899 Other long term (current) drug therapy; Z98.890 Other specified postprocedural states
CPT/HCPCS: J2250; J2704; J3010; J7120